=== PATIENT | male | born 1995 | race Caucasian/White ===

== ENCOUNTER 2023-04-16 12:46 | Outpatient (REF) | payer OTHER, SELFPAY ==
[2023-04-18 12:50] LABS: Acrosom Defect 23.5 %; Container Type 50 mL Conical; Double Forms 2.5 %; Grade 2.5 (>=2.5); Motile/Ejaculate 188.1 x10(6) (>=9.0); Motile/mL 41.8 x10(6) (>=6.0); Motility 41 % (>=40); Semen Volume 4.5 mL (>=1.5); Sperm/mL 101.9 x10(6) (>=15.0); Strict Morph NL 3.5 % (>=4.0); Study Type Semen; Tail Defect 17.5 %
== END 2023-04-16 12:47 | disposition home or self-care (01) ==
LOC: LBN 12:46
PROVIDERS: PCP Legal Medicine; Visit Provider Legal Medicine
DX: N46.8 Other male infertility (principal)
CPT/HCPCS: 89240; 89310